=== PATIENT | male | born 1960 | race African-American/Black ===

== ENCOUNTER 2023-03-28 14:03 | Inpatient (IN) | payer MEDICAID, OTHER ==
[~2023-03-28] VITALS: Ht 188 cm; Wt 123.9 kg
[2023-03-28 16:07] LABS: BASOPHILS % 0.6 % (0.0-2.0); HEMATOCRIT. 45.1 % (42.0-52.0); HEMOGLOBIN. 14.3 g/dL (14.0-18.0); LYMPHOCYTES % 18.5 % (20.0-50.0); MEAN CORPUSCULAR HEMOGLOBIN 28.2 pg (28.0-32.0); MEAN CORPUSCULAR HGB CONC 31.6 g/dL (31.0-37.0); MEAN CORPUSCULAR VOLUME 89.2 fL (80.0-94.0); MEAN PLATELET VOLUME 9.2 fl (7.4-10.4); MONOCYTES % 7.5 % (2.0-8.0); NEUTROPHILS % 71.4 % (40.0-76.0); PLATELET 170 x1000/uL (130-400); RED BLOOD CELL COUNT 5.05 mill/uL (4.7-6.1); RED CELL DISTRIBUTION WIDTH 13.8 % (11.6-14.6); WHITE BLOOD COUNT 5.9 x1000/uL (4.5-11.0)
[2023-03-28 16:11] LABS: INR 0.9; PROTHROMBIN TIME 10.2 sec (9.6-11.0)
[2023-03-28 16:12] LABS: CHLORIDE 108 mEq/L (98-107); INDEX HEMOLYSI 1 (1-3); INDEX ICTERIC 1 (1-4); INDEX LIPEMIC 1 (1-3); POTASSIUM 3.5 mEq/L (3.5-5.1); SODIUM 141 mEq/L (136-145)
[2023-03-28] MEDS ORDERED: NALOXONE HCL 0.4 MG/ML 1ML VIAL IV ONE (16:15)
[2023-03-28 16:20] LABS: ALANINE AMINOTRANSFERASE 26 IU/L (13-61); ALBUMIN 3.8 g/dL (3.4-5.0); ASPARTATE AMINOTRANSFERASE 19 IU/L (15-37); BILIRUBIN TOTAL 0.7 mg/dL (0.1-1.0); CALCIUM 8.7 mg/dL (8.5-10.1); CARBON DIOXIDE 31 mEq/L (21-32); CREATININE 2.1 mg/dL (0.6-1.3); ETHANOL BLOOD < 10 mg/dL (<10); GLUCOSE 75 mg/dL (70-105); NT PRO B-TYPE NATRIURETIC PEP 278 pg/mL (5-125); PROTEIN TOTAL 8.3 g/dL (6.0-8.3); UREA NITROGEN BLOOD 21 mg/dL (7-21)
[2023-03-28 16:27] LABS: TROPONIN I HIGH SENSITIVITY 101 ng/L (<78)
[2023-03-28] MEDS ORDERED: AZITHROMYCIN 500 MG in DEXT 5% WATER 250 ML IV STA (16:53)
[2023-03-28] MEDS ORDERED: ASPIRIN 325MG EC TABLET PO ONE (17:00)
[2023-03-28] MEDS ORDERED: CEFTRIAXONE 1GM PREMIX 50 ML IV ONE (17:00)
[2023-03-28] MEDS ORDERED: ENOXAPARIN 100MG/ML SYR SUBCUT ONE (17:00)
[2023-03-28] MEDS ORDERED: AZITHROMYCIN 500MG/250ML 250 ML IV NR (17:00)
[2023-03-28 17:07] LABS: CLARITY URINE CLEAR (CLEAR); COLOR URINE YELLOW (YELLOW); GLUCOSE URINE NEGATIVE (NEGATIVE); KETONES URINE NEGATIVE (NEGATIVE); LEUKOCYTE ESTERASE URINE NEGATIVE (NEGATIVE); NITRITE URINE NEGATIVE (NEGATIVE); OCCULT BLOOD URINE NEGATIVE (NEGATIVE); PROTEIN URINE NEGATIVE (NEGATIVE); SPECIFIC GRAVITY URINE 1.009 (1.005-1.030)
[2023-03-28 17:26] LABS: *AMPHETAMINES SCREEN URINE NEGATIVE (NEGATIVE); *BARBITURATES SCREEN URINE NEGATIVE (NEGATIVE); *BENZODIAZEPINES SCREEN URINE NEGATIVE (NEGATIVE); *COCAINE SCREEN URINE PRESUMTIVE POSITIVE (NEGATIVE); CANNABINOID URINE SCREEN NEGATIVE (NEGATIVE); ECSTASY MDMA SCREEN URINE NEGATIVE (NEGATIVE); OPIATES URINE SCREEN NEGATIVE (NEGATIVE); PHENCYCLIDINE URINE SCREEN NEGATIVE (NEGATIVE)
[2023-03-28] MEDS ORDERED: ASPIRIN 325MG EC TABLET PO NR (17:30)
[2023-03-28] MEDS ORDERED: ENOXAPARIN 100MG/ML SYR SUBCUT NR (17:30)
[2023-03-28 18:45] LABS: TROPONIN I HIGH SENSITIVITY 92 ng/L (<78)
[2023-03-28 21:30] VITALS: BP 198/100; PULSE 55; PULSE 60; RESP 17; TEMP 98
[2023-03-28] MEDS ORDERED: ACETAMINOPHEN 325MG TABLET PO PRN (22:45)
[2023-03-28] MEDS: HYDRALAZINE HCL 50MG TABLET PO SCH (23:11)
[2023-03-28] MEDS: AMLODIPINE 10MG TABLET PO SCH (23:11)
[2023-03-29] VITALS (7 sets, daily range): BP systolic 140–203; BP diastolic 63–107; PULSE 55–80; RESP 18–51; TEMP 97.2–98.5
[2023-03-29] MEDS: HYDRALAZINE HCL 50MG TABLET PO SCH (05:37)
[2023-03-29 06:57] LABS: BASOPHILS % 0.5 % (0.0-2.0); EOSINOPHILS % 2.8 % (0.0-5.0); HEMATOCRIT. 47.2 % (42.0-52.0); HEMOGLOBIN. 15.7 g/dL (14.0-18.0); LYMPHOCYTES % 37.5 % (20.0-50.0); MEAN CORPUSCULAR HEMOGLOBIN 29.4 pg (28.0-32.0); MEAN CORPUSCULAR HGB CONC 33.3 g/dL (31.0-37.0); MEAN CORPUSCULAR VOLUME 88.2 fL (80.0-94.0); MONOCYTES % 7.9 % (2.0-8.0); NEUTROPHILS % 51.3 % (40.0-76.0); PLATELET 146 x1000/uL (130-400); RED BLOOD CELL COUNT 5.35 mill/uL (4.7-6.1); RED CELL DISTRIBUTION WIDTH 13.9 % (11.6-14.6); WHITE BLOOD COUNT 4.6 x1000/uL (4.5-11.0)
[2023-03-29 07:39] LABS: INDEX HEMOLYSI 2 (1-3); INDEX ICTERIC 1 (1-4); INDEX LIPEMIC 1 (1-3)
[2023-03-29 07:48] LABS: CALCIUM 7.9 mg/dL (8.5-10.1); CARBON DIOXIDE 26 mEq/L (21-32); CHLORIDE 108 mEq/L (98-107); CREATININE 1.3 mg/dL (0.6-1.3); GLUCOSE 83 mg/dL (70-105); POTASSIUM 3.6 mEq/L (3.5-5.1); SODIUM 141 mEq/L (136-145); UREA NITROGEN BLOOD 17 mg/dL (7-21)
[2023-03-29] MEDS: AMLODIPINE 10MG TABLET PO SCH (09:25)
[2023-03-29] MEDS: ASPIRIN 81MG TABLET PO SCH (09:25)
[2023-03-29] MEDS ORDERED: HYDRALAZINE 20MG/ML VIAL IV NR (10:45)
[2023-03-29] MEDS: HYDRALAZINE HCL 100MG TABLET PO SCH ×2 (13:38→20:37)
[2023-03-29] MEDS ORDERED: CLONIDINE 0.1MG TABLET PO PRN (18:15)
[2023-03-29] MEDS ORDERED: ATOR40TA70 PO (18:20)
[2023-03-29] MEDS ORDERED: ASPI-1406 PO (18:20)
[2023-03-29] MEDS ORDERED: DILT180C76 PO (18:20)
[2023-03-29] MEDS ORDERED: DOXA4TAB3 PO (18:20)
[2023-03-29] MEDS ORDERED: LISI10TA26 PO (18:20)
[2023-03-29] MEDS ORDERED: FURO40TA5 PO (18:20)
[2023-03-29] MEDS ORDERED: HYDR-4134 PO (18:20)
[2023-03-29] MEDS ORDERED: CARV25TA47 PO (18:20)
[2023-03-29] MEDS ORDERED: ALLO100T PO (18:20)
[2023-03-29] MEDS: LOSARTAN 100 MG TABLET PO SCH (18:38)
[2023-03-30] VITALS: BP 142/95; PULSE 72; RESP 20; TEMP 97.5
[2023-03-30 04:00] VITALS: BP 157/78; PULSE 72; RESP 20; TEMP 97.7
[2023-03-30] MEDS: HYDRALAZINE HCL 100MG TABLET PO SCH (05:43)
[2023-03-30 08:00] VITALS: BP 165/84; PULSE 69; RESP 18; TEMP 97.8
[2023-03-30] MEDS: LOSARTAN 100 MG TABLET PO SCH (09:04)
[2023-03-30] MEDS: AMLODIPINE 10MG TABLET PO SCH (09:05)
[2023-03-30] MEDS: ASPIRIN 81MG TABLET PO SCH (09:05)
[2023-03-30] MEDS ORDERED: NIFE-32 MT (10:22)
[2023-03-30] MEDS ORDERED: HYDR100T26 PO (10:22)
[2023-03-30 12:00] VITALS: BP 124/78; PULSE 68; RESP 18; TEMP 97.6
[2023-03-30 12:20] VITALS: BP 124/78; PULSE 68; TEMP 97.6; O2SAT 100
== END 2023-03-30 13:00 | disposition home or self-care (01) | DRG 48 ==
LOC: ER 14:03 → 7WST 16:50 → EDBEDREQ 16:52
PROVIDERS: ADMIT Internal Medicine; ATTEND Internal Medicine
DX: G90.8 Other disorders of autonomic nervous system (principal); I13.0 Hypertensive heart and chronic kidney disease with heart failure and stage 1 through stage 4 chronic kidney disease, or unspecified chronic kidney disease; I95.9 Hypotension, unspecified; I50.9 Heart failure, unspecified; F14.90 Cocaine use, unspecified, uncomplicated; N18.9 Chronic kidney disease, unspecified; R32 Unspecified urinary incontinence; E78.00 Pure hypercholesterolemia, unspecified; F17.210 Nicotine dependence, cigarettes, uncomplicated
CPT/HCPCS: 36415; 71045; 80048; 80053; 80305; 80320; 81003; 83605; 83880; 84145; 84484; 85025; 87426; 93005; 93306; 99285; J0360; J0456; J0696; J1650; J2310; J7060; G0480